=== PATIENT | male | born 1980 | race African-American/Black ===

== ENCOUNTER 2024-03-04 12:03 | Emergency (ER) | payer MEDICAID ==
[~2024-03-04] VITALS: Ht 185.4 cm; Wt 100.0 kg
[2024-03-04 12:05] VITALS: O2SAT 97
[2024-03-04 12:16] VITALS: BP 168/78; PULSE 87; RESP 16; TEMP 98.6; O2SAT 98
[2024-03-04] MEDS ORDERED: LIDO700A15 TP (14:29)
[2024-03-04] MEDS: LIDOCAINE 5% PATCH TOP SCH (14:38)
[2024-03-04] MEDS: IBUPROFEN 400MG TABLET PO ONE (14:58)
[2024-03-04] MEDS: ACETAMINOPHEN 325MG TABLET PO ONE (14:58)
== END 2024-03-04 15:00 | disposition home or self-care (01) ==
LOC: ER 12:03
DX: S39.012A Strain of muscle, fascia and tendon of lower back, initial encounter (principal); X58.XXXA Exposure to other specified factors, initial encounter; Y93.89 Activity, other specified; Y92.89 Other specified places as the place of occurrence of the external cause; Y99.8 Other external cause status
CPT/HCPCS: 99282